=== PATIENT | female | born 1935 | race Caucasian/White ===

== ENCOUNTER 2020-10-27 14:36 | Inpatient (IN) | payer OTHER, SELFPAY ==
[~2020-10-27] VITALS: Ht 160 cm; Wt 101.2 kg
[2020-10-27 14:36] VITALS: BP_SYST 122
--- NOTE | 2020-10-27 14:36 | NUR ---
PLACED IN BED 6, TRIAGED AT BED
--- NOTE | 2020-10-27 14:40 | NUR ---
Pt bib EMS from home with c/o diarrhea and generalized weakness x 2 days. Denies n/v, SOB or fever. V/S stable, pt currently resting in bed, will continue to monitor.
--- NOTE | 2020-10-27 14:45 | NUR ---
ER Dr. Aguilar at bedside examining patient.
--- NOTE | 2020-10-27 15:07 | NUR ---
Radiology at bedside for CXR.
[2020-10-27] MEDS ORDERED: NS 500 ML IV ONE (15:15)
--- NOTE | 2020-10-27 15:29 | NUR ---
Lab at bedside for blood draw.
[2020-10-27 15:40] LABS: BASOPHILS % (AUTO) 0.3 % (0.0-2.0); HEMATOCRIT 38.6 % (36-48); HEMOGLOBIN 12.7 g/dL (12.0-16.0); LYMPHOCYTES # (AUTO) 0.6 K/uL (1.0-5.5); LYMPHOCYTES % (AUTO) 3.6 % (20.5-51.5); MEAN CORPUSCULAR HEMOGLOBIN 30 pg (27-31); MEAN CORPUSCULAR HGB CONC 33 % (32-36); MEAN CORPUSCULAR VOLUME 91 fL (79.0-98.0); MONOCYTES # (AUTO) 0.5 K/uL (0.0-1.0); MONOCYTES % (AUTO) 3.2 % (1.7-9.3); NEUTROPHILS # (AUTO) 15.7 K/uL (1.8-7.7); NEUTROPHILS % (AUTO) 92.9 % (40.0-70.0); PLATELET COUNT (AUTO) 288 K/uL (130-430); RED BLOOD CELL COUNT(AUTO) 4.25 MIL/uL (4.2-6.2); RED CELL DISTRIBUTION WIDTH 13.5 % (9.0-15.0); WHITE BLOOD COUNT (AUTO) 16.9 K/uL (4.8-10.8)
[2020-10-27 15:54] LABS: ANION GAP 11 (5-15); CALCIUM 8.1 mg/dL (8.4-11.0); CHLORIDE 106 mmol/L (98-107); CREATININE 1.22 mg/dL (0.55-1.30); GLUCOSE 132 mg/dL (70-99); SODIUM SERUM 137 mmol/L (136-145); UREA NITROGEN, BLOOD 19 mg/dL (8-21)
[2020-10-27 16:00] LABS: ALANINE AMINOTRANSFERASE 29 U/L (12-78); ALBUMIN 2.6 g/dL (3.4-4.8); ASPARTATE AMINOTRANSFERASE 34 U/L (10-37); INR 1.1 (0.8-1.2); TOTAL BILIRUBIN 0.6 mg/dL (0.0-1.0)
[2020-10-27] MEDS ORDERED: POTASSIUM CHLORIDE 20 MEQ TAB.PRT.SR PO ONE ×2 (16:15→18:30)
[2020-10-27] MEDS ORDERED: ASPIRIN 81 MG TAB.CHEW PO ONE (16:15)
[2020-10-27] MEDS ORDERED: POTASSIUM CHLORIDE 20 MEQ TAB.PRT.SR ONE (16:26)
[2020-10-27] MEDS ORDERED: ASPIRIN 81 MG TAB.CHEW ONE (16:35)
[2020-10-27] MEDS ORDERED: NACL 0.9% 2,000 ML IV ONE (17:00)
[2020-10-27] MEDS ORDERED: LEVOFLOXACIN 500 MG/D5W 100 ML IV ONE (17:00)
[2020-10-27] MEDS: NACL 0.9% 1,000 ML IV SCH (18:15)
[2020-10-27] MEDS ORDERED: ACETAMINOPHEN 325 MG TABLET PO PRN (18:15)
[2020-10-27] MEDS ORDERED: ONDANSETRON HCL 4 MG/2 ML VIAL IVP PRN (18:15)
[2020-10-27] MEDS ORDERED: ALBUTEROL SULFATE 0.083% 2.5 MG/3 ML VIAL.NEB INH PRN (18:15)
--- NOTE | 2020-10-27 19:00 | NUR ---
ADMISSION: The patient, ANNALISA MULLEN, 85 y/o, F admitted by KENIA MICHEL MD, was given written information regarding hospital policies, unit procedures and contact persons. Valuables were checked and .
[2020-10-27 19:20] VITALS: BP_SYST 118
--- NOTE | 2020-10-27 19:30 | NUR ---
Initial note: Received report from patrick RN. Patient is in bed, resting. No acute distress. Even and nonlabored breathing on room air. IV site is patent and intact. Bed is locked at lowest position. Bed alarm on. Side rails up x2. Call light is with patient. Safety and fall precautions in place. Will continue with plan of care.
[2020-10-27] MEDS ORDERED: GABA800T PO (19:41)
[2020-10-27] MEDS ORDERED: BENA40TA8 PO (19:43)
[2020-10-27] MEDS ORDERED: HYDR-4273 PO (19:47)
[2020-10-27 20:00] VITALS: BP_SYST 118
[2020-10-27] MEDS ORDERED: metroNIDAZOLE 500 mg/NS 200 ML IV ONE (20:20)
[2020-10-27 20:48] LABS: BILIRUBIN,URINE NEGATIVE (NEGATIVE); BLOOD, URINE 2+ (NEGATIVE); CLARITY/URINE SL CLOUDY (CLEAR); COLOR,URINE YELLOW (YELLOW); GLUCOSE,URINE NEGATIVE (NEGATIVE); KETONES,URINE NEGATIVE (NEGATIVE); LEUKOCYTE ESTERASE ,URINE 2+ (NEGATIVE); NITRITE, URINE POSITIVE (NEGATIVE); PROTEIN URINE 1+ (NEGATIVE); UROBILINOGEN,URINE 0.2 (0.2-1.0)
[2020-10-27 20:51] LABS: BACTERIA,URINE MANY /HPF (None Seen); WBC,URINE 20-50 /HPF (0-3)
[2020-10-27] MEDS: metroNIDAZOLE 500 mg/NS 100 ML IV SCH (21:52)
--- NOTE | 2020-10-27 22:23 | NUR ---
Spoke to Dr. Pichardo: Spoke to Dr. Pichardo over the phone. Notified MD of patient complaint of "needing something to sleep". New orders to input. Verified by readback. RN to input.
[2020-10-27 22:45] VITALS: BP_SYST 118
--- NOTE | 2020-10-27 23:30 | NUR ---
CONSULT: CONSULT CALLED FOR DR. MUNGUIA I SPOKE WITH KOBI EXCHANGE REASON FOR CONSULT: SNSTESD REQUESTING CONSULT: DR. DOUGLASS DIRECTOR PRODUCT MANAGEMENT PHONE NUMBER: [phone]
[2020-10-27] MEDS: GABAPENTIN 300 MG CAPSULE PO SCH (23:59)
[2020-10-28] VITALS: BP_SYST 107; BP_SYST 134
--- NOTE | 2020-10-28 03:29 | NUR ---
Critical Lab: Notified by Liu from lab of patients positive blood culture. Notified Dr. Pichardo over the phone. New orders received. Verified by readback. RN to input.
[2020-10-28] MEDS: NACL 0.9% 1,000 ML IV SCH ×2 (04:53→14:42)
[2020-10-28] MEDS: metroNIDAZOLE 500 mg/NS 100 ML IV SCH ×3 (05:00→21:27)
--- NOTE | 2020-10-28 06:13 | NUR ---
SPOKE TO DR. MICHEL: SPOKE TO DR. MICHEL OVER THE PHONE. NOTIFIED MD THAT PATIENT IS ON [place]. ASKED MD IF SHE WOULD LIKE TO DC ROCEPHIN TO START CEFEPIME. NEW ORDERS RECEIVED. VERIFIED BY READBACK. RN TO INPUT.
--- NOTE | 2020-10-28 06:47 | NUR ---
CLOSING NOTES: PATIENT IS IN BED, RESTING. NO ACUTE DISTRESS. EVEN, NONLABORED BREATHING ON ROOM AIR. IV SITE IS PATENT AND INTACT. ALL NEEDS MET. BED IS LOCKED AT LOWEST POSITION. BED ALARM ON. SIDE RAILS UP. CALL LIGHT IS WITH PATIENT. SAFETY AND FALL PRECAUTIONS IN PLACE. WILL ENDORSE TO DAYSHIFT RN.
[2020-10-28 07:15] LABS: BASOPHILS # (AUTO) 0.1 K/uL (0.0-0.2); BASOPHILS % (AUTO) 0.3 % (0.0-2.0); HEMATOCRIT 31.4 % (36-48); HEMOGLOBIN 10.3 g/dL (12.0-16.0); LYMPHOCYTES # (AUTO) 1.2 K/uL (1.0-5.5); LYMPHOCYTES % (AUTO) 6.7 % (20.5-51.5); MEAN CORPUSCULAR HEMOGLOBIN 30 pg (27-31); MEAN CORPUSCULAR HGB CONC 33 % (32-36); MEAN CORPUSCULAR VOLUME 91 fL (79.0-98.0); MONOCYTES % (AUTO) 5.5 % (1.7-9.3); NEUTROPHILS # (AUTO) 15.4 K/uL (1.8-7.7); NEUTROPHILS % (AUTO) 87.5 % (40.0-70.0); PLATELET COUNT (AUTO) 195 K/uL (130-430); RED BLOOD CELL COUNT(AUTO) 3.47 MIL/uL (4.2-6.2); RED CELL DISTRIBUTION WIDTH 13.9 % (9.0-15.0); WHITE BLOOD COUNT (AUTO) 17.6 K/uL (4.8-10.8)
--- NOTE | 2020-10-28 07:30 | NUR ---
AM ROUNDS: RECEIVED REPORT FROM NIGHT NURSE RICARDO.PATIENT ON SIDE LYING FAST ASLEEP. CALL LIGHT WITH IN REACH. BED LOCKED AT LOWEST POSITION. IV FLUIDS RUNNING AT LEFT WRIST INTACT. CONTINUE TO MONITOR.
[2020-10-28 07:51] LABS: ALANINE AMINOTRANSFERASE 30 U/L (12-78); ALBUMIN 1.9 g/dL (3.4-4.8); ANION GAP 8 (5-15); ASPARTATE AMINOTRANSFERASE 37 U/L (10-37); CALCIUM 7.3 mg/dL (8.4-11.0); CHLORIDE 112 mmol/L (98-107); CREATININE 0.89 mg/dL (0.55-1.30); GLUCOSE 116 mg/dL (70-99); POTASSIUM 3.7 mmol/L (3.5-5.1); SODIUM SERUM 141 mmol/L (136-145); TOTAL BILIRUBIN 0.4 mg/dL (0.0-1.0); UREA NITROGEN, BLOOD 18 mg/dL (8-21)
[2020-10-28 08:09] VITALS: BP_SYST 127
--- NOTE | 2020-10-28 08:19 | NUR ---
CARDIO PAGE: CALLED DR MUNGUIA'S EXCHANGE AND LEFT MESSAGE C/O EMELY RE:CRITICAL TROPONIN.
--- NOTE | 2020-10-28 08:19 | NUR ---
CONSULTATION PAGED REASON FOR CONSULTATION:GM NEGATVIE BACTEREMIA WAS CONSULT CALLED?Y PERSON WHO WAS NOTIFIED:ARTIS CONSULTING PHYSICIAN:SLOANE WEISS [employer] ENGINEER SPECIALTY:INFECTIOUS DISEASE [employer]INE[employer] PHONE NUMBER:[phone] ORDERING PHYSICIAN:KENIA STEINER
[2020-10-28] MEDS ORDERED: cefTRIAXone 1 GM IVPB PREMIX 50 ML IV SCH (09:00)
[2020-10-28] MEDS: CEFEPIME 1 GM in D5W 50 ML IV SCH (09:21)
[2020-10-28] MEDS: GABAPENTIN 300 MG CAPSULE PO SCH ×2 (09:25→21:21)
[2020-10-28] MEDS ORDERED: GABAPENTIN 300 MG CAPSULE PO ONE ×2 (09:30→21:15)
[2020-10-28 11:32] VITALS: BP_SYST 126
[2020-10-28] MEDS ORDERED: DIATR MEGLU/DIATRIZ SOD 30 ML SOLUTION PO ONE (13:07)
--- NOTE | 2020-10-28 14:42 | NUR ---
Troponin: detail technician draw blood for troponin.
--- NOTE | 2020-10-28 15:30 | NUR ---
BACK FROM RADIOLOGY: PATIENT BACK FROM RADIOLOGY PER WHEELCHAIR. STABLE.
[2020-10-28 16:10] VITALS: BP_SYST 143
--- NOTE | 2020-10-28 18:25 | NUR ---
END OF SHIFT: PATIENT HAVING DINNER. CONNECT BACK TO IV FLUIDS. CALL LIGHT WITH IN REACH. BED LOCKED AT LOWEST POSITION. CONTINUE TO MONITOR FOR DIARRHEA.
--- NOTE | 2020-10-28 18:58 | NUR ---
BSC: ASSISTED PATIENT TO BSC,HAD LOOSE BROWNISH WATERY STOOLS.CARE RENDERED.ASSISTED BACK TO BED.
--- NOTE | 2020-10-28 19:30 | NUR ---
initial notes: pt is alert, awake, oriented x 4, watching tv. no pain , not distress, stable on monitor. ivf infusing well to left wrist gaughe 20 . pt had band aid to right wrist-cdi. explain plan of care tonight, pt verbalized understanding. call light in reach. low bed position, bed alarm on . will monitor.
[2020-10-28 20:43] VITALS: BP_SYST 144
--- NOTE | 2020-10-28 22:00 | NUR ---
pt is resting. no pain not distress. all medication take. clean pt. needs attended. call light in reach. will follow-up.
--- NOTE | 2020-10-28 23:15 | NUR ---
page dr. schrader, spoke ,told opt is requesting for benadryl po for sleep tonmd konrad order one time dose of benadryl 25mg po
[2020-10-28] MEDS ORDERED: DIPHENHYDRAMINE HCL 25 MG CAPSULE PO ONE (23:30)
[2020-10-28] MEDS ORDERED: DIPHENHYDRAMINE HCL 25 MG CAPSULE ONE (23:38)
[2020-10-29] VITALS: BP_SYST 141
--- NOTE | 2020-10-29 | NUR ---
SLEEPING, COMFORTABLE. NO SOB, NOT DISTRESS, SAFETY PRECAUTION IN PLACE. CALL LIGHT IN REACH.
[2020-10-29] MEDS: NACL 0.9% 1,000 ML IV SCH ×3 (00:15→21:02)
--- NOTE | 2020-10-29 02:00 | NUR ---
sleeping on her side, stable ,o pain no sob. bed alarm on.
[2020-10-29] MEDS: HYDROcodone/ACETAMIN 5-325 MG TAB (NORCO/ VICODIN) PO PRN ×3 (02:44→21:49)
--- NOTE | 2020-10-29 04:00 | NUR ---
sleeping, comfortable .no pain, no sob. stable.
[2020-10-29] MEDS: metroNIDAZOLE 500 mg/NS 100 ML IV SCH ×3 (05:48→21:02)
--- NOTE | 2020-10-29 06:00 | NUR ---
pt wake sup call for bed ramos. stable no pain. needs attended. call light in reach. bed alarm on.
--- NOTE | 2020-10-29 07:06 | NUR ---
closing: pt is awake, alert, oriented. no ramos, no sob. no diarrhea the whole shift, stable. iv site infiltrated, start new iv angiocath to left forearm gauge 20 done aseptically. pt tolerate well. needs attended the whole shift. will give sbar report to am rn.
--- NOTE | 2020-10-29 07:23 | NUR ---
Nutrition Update Chase Scale 18 noted. Pt admitted for NSTEMI Diet: Cardiac BMI: 39.5 kg/m2 RD to follow per nutrition care standards.
[2020-10-29 08:04] VITALS: BP_SYST 144
[2020-10-29 08:32] LABS: ALANINE AMINOTRANSFERASE 26 U/L (12-78); ALBUMIN 1.8 g/dL (3.4-4.8); ANION GAP 8 (5-15); ASPARTATE AMINOTRANSFERASE 24 U/L (10-37); CALCIUM 7.5 mg/dL (8.4-11.0); CHLORIDE 112 mmol/L (98-107); CREATININE 0.75 mg/dL (0.55-1.30); GLUCOSE 102 mg/dL (70-99); LIPASE 61 U/L (73-393); POTASSIUM 3.4 mmol/L (3.5-5.1); SODIUM SERUM 140 mmol/L (136-145); TOTAL BILIRUBIN 0.4 mg/dL (0.0-1.0); UREA NITROGEN, BLOOD 14 mg/dL (8-21)
[2020-10-29] MEDS: CEFEPIME 1 GM in D5W 50 ML IV SCH (09:26)
[2020-10-29] MEDS: GABAPENTIN 300 MG CAPSULE PO SCH ×2 (10:04→21:03)
[2020-10-29] MEDS ORDERED: GENTAMICIN SULFATE 200 MG in NS 100 ML IV ONE (10:45)
[2020-10-29] MEDS ORDERED: POTASSIUM CHLORIDE 20 MEQ TAB.PRT.SR PO ONE (10:45)
[2020-10-29 11:32] VITALS: BP_SYST 146
[2020-10-29 13:22] LABS: CHOLESTEROL 93 mg/dL (<200); HDL CHOLESTEROL 45 mg/dL (>55); LDL CHOLESTEROL 37 mg/dL (<100); TRIGLYCERIDES 52 mg/dL (30-150)
[2020-10-29 15:38] VITALS: BP_SYST 164
--- NOTE | 2020-10-29 19:30 | NUR ---
Opening notes Received report. Patient is resting in bed, watching TV. No signs of distress noted. Breathing even and unlabored on room air. No complaints of pain. IV patent and intact, infusing fluids. Light turned off per patient request. No other needs. Call light with the patient. Safety precautions in place.
--- NOTE | 2020-10-29 19:49 | NUR ---
closing notes pt had 3 x diarrhea, stool sample sent for wbc and cdiff. pt c/o of headache , given pain meds. endorsed to night nurse clarence.
[2020-10-29 20:00] VITALS: BP_SYST 127
--- NOTE | 2020-10-29 21:57 | NUR ---
Medications given. Educated the action and side effects of [place]. Patient verbalized understanding and tolerated well. IV infiltrated. Will restart new IV. Patient requesting some time before reinsertion due to the pain. No other needs. Call light with the patient. Safety precautions in place.
--- NOTE | 2020-10-29 23:00 | NUR ---
IV insertion New IV inserted into right forearm 22 gauge. With good blood return and flushes well. Resumed ordered IV ABX and IVF. No other needs. Call light with the patient. Safety precautions in place.
[2020-10-29] MEDS: GENTAMICIN 120 mg/100 mL NS 100 ML IV SCH (23:55)
[2020-10-30] VITALS: BP_SYST 151
--- NOTE | 2020-10-30 | NUR ---
RN rounds Patient is resting in bed, watching TV. No signs of distress noted. Breathing even and unlabored on room air. IVF infusing well. Call light with the patient. Safety precautions in place.
--- NOTE | 2020-10-30 02:09 | NUR ---
RN rounds Patient sleeping. No signs of distress noted. Breathing even and unlabored on room air. IVF infusing well. Call light with the patient. Safety precautions in place.
--- NOTE | 2020-10-30 04:58 | NUR ---
RN rounds Patient to bedside commode with minimal assistance. standby assist provided. Patient back in bed, no signs of distress noted. Breathing even and unlabored on room air. IVF infusing well. Call light with the patient. Safety precautions in place.
[2020-10-30] MEDS: metroNIDAZOLE 500 mg/NS 100 ML IV SCH ×2 (05:21→13:22)
[2020-10-30] MEDS: NACL 0.9% 1,000 ML IV SCH ×2 (05:27→15:50)
--- NOTE | 2020-10-30 06:49 | NUR ---
Closing notes Patient is resting in bed, no signs of distress noted. Breathing even and unlabored on room air. No complaints of pain. IV patent and intact, infusing fluids. All needs met throughout the shift. call light with the patient. Safety precautions in place. Will endorse care to day shift RN.
[2020-10-30 07:15] LABS: BASOPHILS % (AUTO) 0.8 % (0.0-2.0); EOSINOPHILS % (AUTO) 0.4 % (0.0-4.0); HEMATOCRIT 33.3 % (36-48); LYMPHOCYTES # (AUTO) 0.7 K/uL (1.0-5.5); LYMPHOCYTES % (AUTO) 11.3 % (20.5-51.5); MEAN CORPUSCULAR HEMOGLOBIN 30 pg (27-31); MEAN CORPUSCULAR HGB CONC 33 % (32-36); MEAN CORPUSCULAR VOLUME 90 fL (79.0-98.0); MONOCYTES # (AUTO) 0.3 K/uL (0.0-1.0); MONOCYTES % (AUTO) 5.5 % (1.7-9.3); NEUTROPHILS # (AUTO) 5.1 K/uL (1.8-7.7); PLATELET COUNT (AUTO) 217 K/uL (130-430); RED BLOOD CELL COUNT(AUTO) 3.68 MIL/uL (4.2-6.2); RED CELL DISTRIBUTION WIDTH 14.2 % (9.0-15.0); WHITE BLOOD COUNT (AUTO) 6.2 K/uL (4.8-10.8)
[2020-10-30 07:36] LABS: ALANINE AMINOTRANSFERASE 24 U/L (12-78); ANION GAP 9 (5-15); ASPARTATE AMINOTRANSFERASE 24 U/L (10-37); CALCIUM 7.4 mg/dL (8.4-11.0); CHLORIDE 111 mmol/L (98-107); CREATININE 0.79 mg/dL (0.55-1.30); GLUCOSE 102 mg/dL (70-99); POTASSIUM 3.6 mmol/L (3.5-5.1); SODIUM SERUM 138 mmol/L (136-145); TOTAL BILIRUBIN 0.3 mg/dL (0.0-1.0); UREA NITROGEN, BLOOD 10 mg/dL (8-21)
[2020-10-30] MEDS: GABAPENTIN 300 MG CAPSULE PO SCH ×2 (10:01→21:02)
[2020-10-30] MEDS: CEFEPIME 1 GM in D5W 50 ML IV SCH (10:01)
[2020-10-30 10:08] VITALS: BP_SYST 178
[2020-10-30] MEDS: GENTAMICIN 120 mg/100 mL NS 100 ML IV SCH (11:04)
[2020-10-30 12:10] VITALS: BP_SYST 169
[2020-10-30 14:23] VITALS: BP_SYST 169
[2020-10-30 16:12] VITALS: BP_SYST 150
--- NOTE | 2020-10-30 19:30 | NUR ---
Opening notes Received report. Patient is resting in bed. No signs of distress noted. Breathing even and unlabored on room air. No complaints of pain. IV patent and intact, infusing fluids. No other needs. Call light with the patient. Safety precautions in place.
[2020-10-30 20:00] VITALS: BP_SYST 159
--- NOTE | 2020-10-30 21:05 | NUR ---
Medications given. Educated the action and side effects of gabapentin. Patient verbalized understanding and tolerated well. No other needs. Call light with the patient. Safety precautions in place.
--- NOTE | 2020-10-31 00:30 | NUR ---
RN rounds Patient is sleeping. No signs of distress noted. Breathing even and unlabored on room air. IVF infusing well. Call light with the patient. Safety precautions in place.
[2020-10-31] MEDS: NACL 0.9% 1,000 ML IV SCH ×3 (04:23→22:05)
--- NOTE | 2020-10-31 04:30 | NUR ---
RN rounds Patient to bedside commode having bowel movement. Linens changed. Patient resting in bed, no signs of distress noted. Breathing even and unlabored on room air. No needs. Call light with the patient. Safety precautions in place.
--- NOTE | 2020-10-31 07:32 | NUR ---
Closing notes Patient is resting in bed, no signs of distress noted. Breathing even and unlabored on room air. No complaints of pain. IV patent and intact, infusing fluids. All needs met throughout the shift. call light with the patient. Safety precautions in place. Care endorsed to day shift RN.
[2020-10-31 08:30] VITALS: BP_SYST 183
[2020-10-31] MEDS: GABAPENTIN 300 MG CAPSULE PO SCH ×3 (09:00→22:03)
[2020-10-31 11:22] VITALS: BP_SYST 148
[2020-10-31] MEDS ORDERED: CIPROFLOXACIN HCL 500 MG TABLET PO ONE (12:00)
--- NOTE | 2020-10-31 13:10 | NUR ---
Attempted PIV start twice. Pt still without PIV access. Pt to have IV hydration and IV antibiotic.
--- NOTE | 2020-10-31 13:20 | NUR ---
Left message to Dr. Peng re: Pt has NO PIV access and has IV hydration and IV antibiotics scheduled. Pt refused new PIV start. Pt requests oral antibiotics. Awaiting response.
--- NOTE | 2020-10-31 13:52 | NUR ---
Notified Dr. Huynh re: pt's PIV refusal. Pt will not take PO antibiotic instead if IV. Also paged Dr. Medina re: orders re: discontinuing IV hydration since pt is refusing IV access. Awaiting response.
[2020-10-31 16:05] VITALS: BP_SYST 187
--- NOTE | 2020-10-31 19:30 | NUR ---
Report received from day shift nurse. Pt was received lying in bed fully awake, alert and oriented x4. No c/o pain or discomfort and no acute distress noted. Angiocath in RFA was removed intact per pt's request due to infiltration. Pt declined IV restart and stated she is being discharged tomorrow. Fall and safety precautions are in place. Call light is with pt and bed alarm is on.
[2020-10-31 20:00] VITALS: BP_SYST 148
--- NOTE | 2020-10-31 20:30 | NUR ---
Pt assisted to BSC and back to bed after pt voided clear yellowish urine. Pt assisted with geno care. Call light given to pt and bed alarm on.
--- NOTE | 2020-10-31 21:55 | NUR ---
Pt voided clear yellowish urine in bedpan. Pt assisted with geno care. Fall and safety precautions are in place.
[2020-10-31] MEDS: CIPROFLOXACIN HCL 500 MG TABLET PO SCH (22:03)
[2020-10-31] MEDS: HYDROcodone/ACETAMIN 5-325 MG TAB (NORCO/ VICODIN) PO PRN (22:54)
--- NOTE | 2020-10-31 22:54 | NUR ---
[place] 5/325mg 1 tablet was given po for c/o 6/10 pain in both legs. Fall and safety precautions are in place. Pt was instructed not to get out of bed without calling for assistance and pt verbalized understanding. Call light is with pt and bed alarm is on. Bed is in the lowest/locked positions.
[2020-11-01] VITALS: BP_SYST 150
--- NOTE | 2020-11-01 00:30 | NUR ---
Resting quietly in bed without any distress. Fall and safety precautions are in place.
--- NOTE | 2020-11-01 03:00 | NUR ---
Sleeping without any distress. Fall and safety precautions are in place.
--- NOTE | 2020-11-01 05:00 | NUR ---
No acute distress noted. Fall and safety precautions are in place.
--- NOTE | 2020-11-01 06:30 | NUR ---
Awake and not in any distress. All needs attended to. Fall and safety precautions are in place.
[2020-11-01 06:58] LABS: BASOPHILS # (AUTO) 0.1 K/uL (0.0-0.2); BASOPHILS % (AUTO) 1.4 % (0.0-2.0); EOSINOPHILS # (AUTO) 0.2 K/uL (0.0-0.4); EOSINOPHILS % (AUTO) 2.5 % (0.0-4.0); HEMATOCRIT 32.6 % (36-48); HEMOGLOBIN 10.9 g/dL (12.0-16.0); LYMPHOCYTES # (AUTO) 1.3 K/uL (1.0-5.5); LYMPHOCYTES % (AUTO) 17.3 % (20.5-51.5); MEAN CORPUSCULAR HEMOGLOBIN 30 pg (27-31); MEAN CORPUSCULAR HGB CONC 33 % (32-36); MEAN CORPUSCULAR VOLUME 89 fL (79.0-98.0); MONOCYTES # (AUTO) 0.6 K/uL (0.0-1.0); NEUTROPHILS # (AUTO) 5.4 K/uL (1.8-7.7); NEUTROPHILS % (AUTO) 70.8 % (40.0-70.0); PLATELET COUNT (AUTO) 265 K/uL (130-430); RED BLOOD CELL COUNT(AUTO) 3.67 MIL/uL (4.2-6.2); WHITE BLOOD COUNT (AUTO) 7.7 K/uL (4.8-10.8)
[2020-11-01 07:24] LABS: ALANINE AMINOTRANSFERASE 16 U/L (12-78); ANION GAP 9 (5-15); ASPARTATE AMINOTRANSFERASE 23 U/L (10-37); CALCIUM 7.5 mg/dL (8.4-11.0); CHLORIDE 110 mmol/L (98-107); CREATININE 0.87 mg/dL (0.55-1.30); GLUCOSE 100 mg/dL (70-99); POTASSIUM 3.4 mmol/L (3.5-5.1); SODIUM SERUM 141 mmol/L (136-145); TOTAL BILIRUBIN 0.2 mg/dL (0.0-1.0); UREA NITROGEN, BLOOD 9 mg/dL (8-21)
[2020-11-01 07:40] VITALS: BP_SYST 176
--- NOTE | 2020-11-01 07:40 | NUR ---
INITIAL ROUNDS Received pt AAOx4, no s/s resp distress, c/o headache-will check on pain medication. Plan of care for the day reviewed with pt-pt verbalized her understanding. Pain management, skin and safety discussed-teach back done. Side rails up x3, bed alarm on, room across from nursing station for safety. Call light within reach.
--- NOTE | 2020-11-01 07:40 | NUR ---
INITIAL ROUNDS Received pt AAOx4, no s/s resp distress, c/o headache-will check on pain medications. Plan of care for the day reviewed with pt-pt verbalized her understanding. Pain management, disease process, skin and safety discussed-teach back done. Side rails up x3, bed alarm on, room across from nursing station for safety, call light within reach.
[2020-11-01] MEDS: NACL 0.9% 1,000 ML IV SCH (08:15)
[2020-11-01] MEDS: GABAPENTIN 300 MG CAPSULE PO SCH (08:37)
[2020-11-01] MEDS: HYDROcodone/ACETAMIN 5-325 MG TAB (NORCO/ VICODIN) PO PRN (08:37)
[2020-11-01] MEDS ORDERED: LEVO500T89 PO (10:03)
[2020-11-01] MEDS: CIPROFLOXACIN HCL 500 MG TABLET PO SCH (10:12)
--- NOTE | 2020-11-01 10:35 | NUR ---
ROUNDS/ Pt seen by Dr. Medina, discharge home orders with Home Health for Physical Therapy given. Pt with no s/s resp distress, no c/o pain or discomfort. Call light within reach.
--- NOTE | 2020-11-01 11:37 | NUR ---
HCP/[facility] CM ADULT MANAGER MS SANDY ROSENBAUM WAS CALLED, RE: TO ARRANGE HOME HEALTH PT EVAL AND TX. LEFT VOICE MESSAGE ON HER CELL.
[2020-11-01 11:55] VITALS: BP_SYST 150
[2020-11-01 12:42] VITALS: BP_SYST 150
--- NOTE | 2020-11-01 13:05 | NUR ---
PATIENT DISCHARGED Patient given medication reconciliation form and D/C instructions. Exit Care explained and provided. Patient verbalized her understanding. MD discussed with patient the results and treatment provided. Ambulatory with steady gait with FWW for discharge to home. Patient in stable condition, ID band removed. Rx of Levaquin sent via [facility]. Patient educated on pain management. All belongings sent with patient. patient left floor via wheelchair to private vehicle in no distress.
--- NOTE | 2020-11-02 12:21 | NUR ---
Discharge Follow Up Call: REAMING MACHINE OPERATOR phoned pt @ [phone] and spoke with pt who stated she is "doing good" and needing more rest. Pt stated she was able to belt picker her prescription and [facility] is scheduled to come to the house on 11/05. Pt has not made an appointment with PCP but will call. Pt does not have any questions/concerns about discharge instructions. No further SS call needed.
== END 2020-11-01 13:05 | disposition home health service (06) | DRG 871 ==
LOC: SED 14:36 → STU 17:16 → SMU 10-29 11:29
PROVIDERS: ADMIT Internal Medicine Hospice and Palliative Medicine; ATTEND Internal Medicine Hospice and Palliative Medicine
DX: A41.51 Sepsis due to Escherichia coli [E. coli] (principal); I21.A1 Myocardial infarction type 2; J18.9 Pneumonia, unspecified organism; N39.0 Urinary tract infection, site not specified; E87.2 Acidosis; E87.1 Hypo-osmolality and hyponatremia; N10 Acute pyelonephritis; G89.29 Other chronic pain; E87.6 Hypokalemia; I10 Essential (primary) hypertension; E11.42 Type 2 diabetes mellitus with diabetic polyneuropathy; Z20.828 Contact with and (suspected) exposure to other viral communicable diseases; Z82.49 Family history of ischemic heart disease and other diseases of the circulatory system; Z90.710 Acquired absence of both cervix and uterus; Z68.39 Body mass index [BMI] 39.0-39.9, adult
CPT/HCPCS: 36415; 71045; 76376; 76770; 80053; 80061; 81000-TC; 82272; 83605; 83690-TC; 84484; 85025; 85610-TC; 85730-TC; 87040-TC; 87045-TC; 87046; 87086; 87230-TC; 89055; 93005; 93306; 96365; 97116-GP; 97163; 97530-GP; 99291; G0378; J0692; J0696; J1580; J1956; J3490; J7060; Q0163; Q9964; Q9967